=== PATIENT | male | born 1950 | race Caucasian/White ===

== ENCOUNTER 2018-09-26 07:09 | Outpatient (CLI) | payer MEDICARE | END 2018-09-26 23:59 | disposition home or self-care (01) | LOC: CVU 07:09 | PROVIDERS: ATTEND Family Medicine | DX: Z13.6 Encounter for screening for cardiovascular disorders (principal); I10 Essential (primary) hypertension; Z95.1 Presence of aortocoronary bypass graft | CPT/HCPCS: 93922 ==

== ENCOUNTER 2018-12-04 08:18 | Outpatient (CLI) | payer MEDICARE ==
[2018-12-04 13:31] LABS: HEMOGLOBIN A1C 5.9 % (4.2-6.3)
[2018-12-04 13:40] LABS: CHLORIDE 104 mmol/L (98-107)
[2018-12-04 13:49] LABS: ALANINE AMINOTRANSFERASE 24 U/L (12-78); ALBUMIN 4.1 g/dL (3.4-5.0); ALKALINE PHOSPHATASE 79 U/L (45-117); ANION GAP 5 mmol/L (5-15); BILIRUBIN,TOTAL 0.7 mg/dL (0.2-1.0); CHOL/HDL RATIO 4.5; CHOLESTEROL, TOTAL 196 mg/dL (140-239); CREATININE 1.09 mg/dL (0.7-1.3); HDL CHOL % 22 % (26-37); HDL CHOLESTEROL (DIRECT) 44 mg/dL (40-60); LDL CHOLESTEROL,CALCULATED 118 mg/dL (54-169); LDL/HDL RATIO 2.7 (0.5-3.0); PSA SCREEN 1.28 ng/mL (0.00-4.00); TRIGLYCERIDES 171 mg/dL (50-200); VLDL CHOLESTEROL 34 mg/dL (0-25)
== END 2018-12-04 23:59 | disposition home or self-care (01) ==
LOC: CFH 08:18
PROVIDERS: ATTEND Family Medicine
DX: Z12.5 Encounter for screening for malignant neoplasm of prostate (principal); E78.5 Hyperlipidemia, unspecified; E78.2 Mixed hyperlipidemia; I10 Essential (primary) hypertension; Z95.1 Presence of aortocoronary bypass graft; R73.9 Hyperglycemia, unspecified; R73.09 Other abnormal glucose
CPT/HCPCS: 36415; 80053; 80061; 82043; 83036; G0103

== ENCOUNTER 2018-12-05 08:18 | Outpatient (CLI) | payer MEDICARE | END 2018-12-05 23:59 | disposition home or self-care (01) | LOC: CFH 08:18 | PROVIDERS: ATTEND Internal Medicine Cardiovascular Disease | DX: I10 Essential (primary) hypertension (principal); I25.10 Atherosclerotic heart disease of native coronary artery without angina pectoris | CPT/HCPCS: 78452; 93017; A9502 ==